=== PATIENT | female | born 1960 | race Caucasian/White ===

== ENCOUNTER 2018-11-24 11:08 | Emergency (ER) | payer OTHER ==
[2018-11-24 11:16] VITALS: TEMP 98.2
[2018-11-24] MEDS: SODIUM CHLORIDE 0.9% 1,000 ML IV STA (11:41)
[2018-11-24] MEDS: ONDANSETRON 4 MG/2 ML VIAL IVP STA (11:42)
[2018-11-24] MEDS: MORPHINE SULFATE 4 MG/ML SYRINGE IV STA ×2 (11:45→13:26)
[2018-11-24 12:09] LABS: Basophils # (A) 0.1 k/uL (0-0.2); Basophils % (A) 0 %; Eosinophils # (A) 0.4 k/uL (0-0.7); Eosinophils % (A) 3 %; HCT 33.9 % (34.0-46.0); HGB 10.8 gm/dL (11.4-16.0); Lymphocytes # (A) 2.5 k/uL (1.0-4.8); Lymphocytes % (A) 18 %; MCH 27.4 pg (25.0-35.0); MCHC 31.9 g/dL (31.0-37.0); MCV 86.2 fL (80.0-100.0); Mean Platelet Volume 7.6; Monocytes # (A) 0.8 k/uL (0-1.0); Monocytes % (A) 5 %; Neutrophils # (A) 10.6 k/uL (1.3-7.7); Neutrophils % (A) 73 %; Platelet Count 394 k/uL (150-450); RBC 3.93 m/uL (3.80-5.40); RDW 15.1 % (11.5-15.5); WBC 14.6 k/uL (3.8-10.6)
[2018-11-24 12:18] LABS: ALT 22 U/L (9-52); AST 22 U/L (14-36); Albumin 4.3 g/dL (3.5-5.0); Alkaline Phosphatase 59 U/L (38-126); Amylase 49 U/L (30-110); Anion Gap 9 mmol/L; Blood Urea Nitrogen 13 mg/dL (7-17); Calcium 9.6 mg/dL (8.4-10.2); Carbon Dioxide 22 mmol/L (22-30); Chloride 106 mmol/L (98-107); Glucose 240 mg/dL (74-99); Partial Thromboplastin Time 41.8 sec (22.0-30.0); Potassium 4.4 mmol/L (3.5-5.1); Prothrombin Time 19.5 sec (9.0-12.0); Sodium 137 mmol/L (137-145); Total Bilirubin 0.8 mg/dL (0.2-1.3); Total Protein 7.3 g/dL (6.3-8.2)
--- NOTE | 2018-11-24 12:29 | ED ---
General Adult HPI - General Chief complaint: Abdominal Pain Stated complaint: kidney stones/bruising on leg Time Seen by Provider: 11/24/18 11:24 Source: patient, family, RN notes reviewed Mode of arrival: ambulatory Limitations: no limitations - History of Present Illness Initial comments: Patient is a 58-year-old female presenting to the emergency room today with a chief complaint of increased pain in her back and right leg. Patient does admit to a history of kidney stones. She states that she was at the doctor's office recently was given Toradol shot. She states she is on Coumadin. Patient states that she's had increased swelling to the right leg. Bruising. Unsure if it's related to the shot. Patient denies any other complaints. - Related Data Home Medications Medication Instructions Recorded Confirmed Aspirin EC [Ecotrin Low Dose] 81 mg PO DAILY 11/24/18 11/24/18 DULoxetine HCL [Cymbalta] 60 mg PO DAILY 11/24/18 11/24/18 Fluticasone Nasal [place] [Flonase 2 spr EA NOSTRIL DAILY PRN 11/24/18 11/24/18 Nasal [place]] Hydrocodone/Acetaminophen [Norris 1 tab PO Q6H PRN 11/24/18 11/24/18 10-325] Insulin Glargine,Hum.rec.anlog 44 unit SQ QAM 11/24/18 11/24/18 [Basag[place]auren Renteriapen U-100] Lisinopril 40 mg PO DAILY 11/24/18 11/24/18 Simvastatin [Zocor] 20 mg PO DAILY 11/24/18 11/24/18 Warfarin Sodium 10 mg PO DAILY@1700 11/24/18 11/24/18 clonazePAM 0.5 mg PO DAILY@2100 11/24/18 11/24/18 metFORMIN HCL 1,000 mg PO DAILY 11/24/18 11/24/18 Previous Rx's Medication Instructions Recorded Cefixime [Suprax] 400 mg PO DAILY #10 cap 11/24/18 Lidocaine [Lidoderm 5% Patch] 1 patch TRANSDERM DAILY #7 patch 11/24/18 Allergies Allergy/AdvReac Type Severity Reaction Status Date / Time No Known Allergies Allergy Verified 11/24/18 11:40 Review of Systems ROS Statement: Those systems with pertinent positive or pertinent negative responses have been documented in the HPI. ROS Other: All systems not noted in ROS Statement are negative. Past Medical History Past Medical History: Diabetes Mellitus Additional Past Medical History / Comment(s): Blood clot rt arm History of Any Multi-Drug Resistant Organisms: None Reported Past Surgical History: Unable to Obtain Past Psychological History: No Psychological Hx Reported Smoking Status: Never smoker Past Alcohol Use History: Occasional Past Drug Use History: None Reported General Exam Limitations: no limitations Course Vital Signs 11/24/18 11/24/18 11/24/18 11:12 13:00 13:30 Temperature 98.2 F Pulse Rate 109 H 98 85 Respiratory 20 18 18 Rate Blood Pressure 152/88 108/86 115/80 O2 Sat by Pulse 99 97 98 Oximetry 11/24/18 11/24/18 11/24/18 13:31 14:00 14:30 Temperature Pulse Rate 103 H 89 92 Respiratory 18 18 18 Rate Blood Pressure 124/80 124/84 133/72 O2 Sat by Pulse 98 100 95 Oximetry 11/24/18 11/24/18 11/24/18 15:00 15:30 16:00 Temperature Pulse Rate 93 94 88 Respiratory 18 18 18 Rate Blood Pressure 119/70 123/68 125/77 O2 Sat by Pulse 100 97 99 Oximetry Medical Decision Making - Medical Decision Making Patient labs reviewed and shows 14 WBC. INR is 2.0. Glucose is 240. Patient US show hematoma to the left thigh that measures 16x5cm. CT abd/pelvis shows Kidney stone in the kidney with stranding form the left kidney. Urinalysis reviewed and does show evidence of rare bacteria. Culture pending. Patient given dose of Rocephin here in emergency room room 2 g. Results discussed with the patient and family. Patient will be discharged home to follow-up family doctor tomorrow. She'll be continued on antibiotics. Patient was given a Lidoderm patch in the emergency room and states the pains improved. Will be given a prescription to go home with. Advised return to emergency room symptoms increase worsen. - Lab Data Result diagrams: 11/24/18 11:48 11/24/18 11:48 Lab Results 11/24/18 11/24/18 11/24/18 Range/Units 11:48 11:48 11:48 WBC 14.6 H (3.8-10.6) k/uL RBC 3.93 (3.80-5.40) m/uL Hgb 10.8 L (11.4-16.0) gm/dL Hct 33.9 L (34.0-46.0) % MCV 86.2 (80.0-100.0) fL MCH 27.4 (25.0-35.0) pg MCHC 31.9 (31.0-37.0) g/dL RDW 15.1 (11.5-15.5) % Plt Count 394 (150-450) k/uL Neutrophils % 73 % Lymphocytes % 18 % Monocytes % 5 % Eosinophils % 3 % Basophils % 0 % Neutrophils # 10.6 H (1.3-7.7) k/uL Lymphocytes # 2.5 (1.0-4.8) k/uL Monocytes # 0.8 (0-1.0) k/uL Eosinophils # 0.4 (0-0.7) k/uL Basophils # 0.1 (0-0.2) k/uL PT 19.5 H (9.0-12.0) sec INR 2.0 H (<1.2) APTT 41.8 H (22.0-30.0) sec Sodium 137 (137-145) mmol/L Potassium 4.4 (3.5-5.1) mmol/L Chloride 106 (98-107) mmol/L Carbon Dioxide 22 (22-30) mmol/L Anion Gap 9 mmol/L BUN 13 (7-17) mg/dL Creatinine 0.59 (0.52-1.04) mg/dL Est GFR (CKD-EPI)AfAm >90 (>60 ml/min/1.73 sqM) Est GFR (CKD-EPI)NonAf >90 (>60 ml/min/1.73 sqM) Glucose 240 H (74-99) mg/dL Calcium 9.6 (8.4-10.2) mg/dL Total Bilirubin 0.8 (0.2-1.3) mg/dL AST 22 (14-36) U/L ALT 22 (9-52) U/L Alkaline Phosphatase 59 (38-126) U/L Total Protein 7.3 (6.3-8.2) g/dL Albumin 4.3 (3.5-5.0) g/dL Amylase 49 (30-110) U/L Urine Color Urine Appearance (Clear) Urine pH (5.0-8.0) Ur Specific [place] (1.001-1.035) Urine Protein (Negative) Urine Glucose (UA) (Negative) Urine Ketones (Negative) Urine Blood (Negative) Urine Nitrite (Negative) Urine Bilirubin (Negative) Urine Urobilinogen (<2.0) mg/dL Ur Leukocyte Esterase (Negative) Urine RBC (0-5) /hpf Urine WBC (0-5) /hpf Urine Bacteria (None) /hpf 11/24/18 Range/Units 12:54 WBC (3.8-10.6) k/uL RBC (3.80-5.40) m/uL Hgb (11.4-16.0) gm/dL Hct (34.0-46.0) % MCV (80.0-100.0) fL MCH (25.0-35.0) pg MCHC (31.0-37.0) g/dL RDW (11.5-15.5) % Plt Count (150-450) k/uL Neutrophils % % Lymphocytes % % Monocytes % % Eosinophils % % Basophils % % Neutrophils # (1.3-7.7) k/uL Lymphocytes # (1.0-4.8) k/uL Monocytes # (0-1.0) k/uL Eosinophils # (0-0.7) k/uL Basophils # (0-0.2) k/uL PT (9.0-12.0) sec INR (<1.2) APTT (22.0-30.0) sec Sodium (137-145) mmol/L Potassium (3.5-5.1) mmol/L Chloride (98-107) mmol/L Carbon Dioxide (22-30) mmol/L Anion Gap mmol/L BUN (7-17) mg/dL Creatinine (0.52-1.04) mg/dL Est GFR (CKD-EPI)AfAm (>60 ml/min/1.73 sqM) Est GFR (CKD-EPI)NonAf (>60 ml/min/1.73 sqM) Glucose (74-99) mg/dL Calcium (8.4-10.2) mg/dL Total Bilirubin (0.2-1.3) mg/dL AST (14-36) U/L ALT (9-52) U/L Alkaline Phosphatase (38-126) U/L Total Protein (6.3-8.2) g/dL Albumin (3.5-5.0) g/dL Amylase (30-110) U/L Urine Color Colorless Urine Appearance Clear (Clear) Urine pH 6.5 (5.0-8.0) Ur Specific [place] 1.001 (1.001-1.035) Urine Protein Negative (Negative) Urine Glucose (UA) Negative (Negative) Urine Ketones Negative (Negative) Urine Blood Trace H (Negative) Urine Nitrite Negative (Negative) Urine Bilirubin Negative (Negative) Urine Urobilinogen <2.0 (<2.0) mg/dL Ur Leukocyte Esterase Negative (Negative) Urine RBC <1 (0-5) /hpf Urine WBC <1 (0-5) /hpf Urine Bacteria Rare H (None) /hpf Disposition Clinical Impression: Acute pyelonephritis Disposition: HOME SELF-CARE Condition: Good Instructions: Urinary Tract Infection in Women (ED) Additional Instructions: Please use medication as discussed. Please follow-up with family doctor in the next 2 days. Please return to emergency room if the symptoms increase or worsen or for any other concerns. Prescriptions: Cefixime [Suprax] 400 mg PO DAILY #10 cap Lidocaine [Lidoderm 5% Patch] 1 patch TRANSDERM DAILY #7 patch Is patient prescribed a controlled substance at d/c from ED?: No Referrals: Andres Rivas MD [Primary Care Provider] - 1-2 days Time of Disposition: 15:20
--- NOTE | 2018-11-24 12:59 | US ---
EXAMINATION TYPE: US venous doppler duplex LE RT DATE OF EXAM: 11/24/2018 12:49 PM COMPARISON: NONE CLINICAL HISTORY: Pain. Bruising right medial thigh, patient on coumadin SIDE PERFORMED: Right TECHNIQUE: The lower extremity deep venous system is examined utilizing real time linear array sonog yan with graded compression, doppler sonography and color-flow sonography. VESSELS IMAGED: External Iliac Vein (EIV) Common Femoral Vein Deep Femoral Vein Greater Saphenous Vein * Femoral Vein Popliteal Vein Small Saphenous Vein * Proximal Calf Veins (* superficial vessels) Right Leg: No evidence of DVT. Complex hypoechoic area right groin extending into mid medial thigh = 16.0 x 2.5 x 5.4cm. Correlate for hematoma. IMPRESSION: 1. No ultrasound evidence of deep venous thrombosis. 2. Complex hypoechoic collection may be a large hematoma. Clinical correlation recommended.
[2018-11-24 13:26] LABS: Appearance,Urine Clear (Clear); Bacteria,Urine Rare /hpf; Bilirubin,Urine Negative (Negative); Blood,Urine Trace (Negative); Color,Urine Colorless; Glucose,Urine (UA) Negative (Negative); Ketones,Urine Negative (Negative); Leukocyte Esterase,Urine Negative (Negative); Nitrite,Urine Negative (Negative); PH, Urine 6.5 (5.0-8.0); Protein,Urine Negative (Negative); RBC,Urine <1 /hpf (0-5); Specific Gravity,Urine 1.001 (1.001-1.035); Urobilinogen,Urine <2.0 mg/dL (<2.0)
[2018-11-24 13:31] VITALS: RESP 18
--- NOTE | 2018-11-24 14:26 | CT ---
EXAMINATION TYPE: CT abdomen pelvis wo con DATE OF EXAM: 11/24/2018 COMPARISON: None HISTORY: Pelvic pain with history of stones CT DLP: 503.6 mGycm Examination of the solid and hollow viscera is limited given the lack of contrast. FINDINGS: LUNG BASES: No evidence for nodule. No evidence for infiltrate. LIVER/GB: The gallbladder is surgically absent. No space-occupying hepatic lesion. PANCREAS: No pancreatic mass identified. No inflammatory process seen. SPLEEN: No evidence for splenomegaly. No intrasplenic lesions seen. ADRENALS: No adrenal nodules identified. No evidence for thickening. KIDNEYS: Bilateral nephrolithiasis noted with multiple calculi measuring less than 3 mm seen. I do no t see evidence for hydronephrosis. There is mild the patient fullness left kidney with perinephric st randing could reflect underlying pyelonephritis. Correlate clinically and with urinalysis. BOWEL: Appendix has a normal appearance. No evidence of bowel obstruction. No inflammatory process. Lymph nodes: No evidence for adenopathy greater than 1 cm. Abdominal aorta: Atheromatous changes seen. No evidence for aneurysm. Genital organs: No significant abnormality. Other: No significant abnormality. IMPRESSION: 1. Nonobstructing nephrolithiasis. 2. Fullness and stranding left kidney may reflect underlying pyelonephritis. Correlate clinically wit h urinalysis.
[2018-11-24] MEDS: cefTRIAXone 2,000 MG in SODIUM CHLORIDE 0.9% 100 ML IVPB STA (15:21)
[2018-11-24] MEDS: LIDOCAINE 5% PATCH TOPICAL STA (15:38)
[2018-11-24 16:09] VITALS: BP 125/77; PULSE 88
== END 2018-11-24 16:53 | disposition home or self-care (01) ==
LOC: EC 11:08
DX: N10 Acute pyelonephritis (principal); M79.81 Nontraumatic hematoma of soft tissue; M79.89 Other specified soft tissue disorders; M54.9 Dorsalgia, unspecified; M79.604 Pain in right leg; E11.9 Type 2 diabetes mellitus without complications; Z79.4 Long term (current) use of insulin; Z79.82 Long term (current) use of aspirin; Z79.899 Other long term (current) drug therapy; Z79.01 Long term (current) use of anticoagulants
CPT/HCPCS: 36415; 80053; 82150; 85025; 85610; 85730; 81001; 93971; 74176; 99284; 96365; 96375 ×2; 96376; 96361; J2270; J2405; J0696